=== PATIENT | male | born 1955 | race Hispanic/Latino ===

== ENCOUNTER 2022-11-26 19:42 | Inpatient (IN) | payer BC, MEDICARE ==
[2022-11-26 20:30] LABS: #Basophils 0.1 thou/uL (0.0-0.2); #Eosinphils 0.3 thou/uL (0.0-0.7); #Monocytes 0.7 thou/uL (0.11-0.59); #Neutrophils 5.4 thou/uL (1.40-6.50); %Basophils 0.7 % (0.0-1.0); %Eosinophils 3.5 % (0.0-10.0); %Lymphocytes 22.7 % (21.0-51.0); %Monocytes 7.8 % (0.0-10.0); %Neutrophils 65.1 % (42.0-75.0); Hematocrit 42.2 % (42.0-52.0); Hemoglobin 13.7 g/dL (14.0-18.0); Mean Corpuscular HGB CONC 32.5 g/dL (32.0-36.0); Mean Corpuscular Hemoglobin 29.9 pg (27.0-31.0); Mean Corpuscular Volume 92.1 fl (78.0-98.0); Mean Platelet Volume 11.7 fL (7.4-10.4); Platelet Count 215 10x3/uL (130-400); RBC Distribution Width 12.2 % (11.5-14.5); Red Blood Cell (RBC) Count 4.58 mill/uL (4.70-6.10); White Blood Cell (WBC) Count 8.4 10x3/uL (4.8-10.8)
[2022-11-26 20:56] LABS: ALT (SGPT) 22 U/L (8-55); AST (SGOT) 20 U/L (5-34); Albumin 3.9 g/dL (3.4-4.8); Alkaline Phosphatase 85 U/L (40-110); Anion Gap 13 mmol/L (10-20); BUN (Urea Nitrogen) 51 mg/dL (8.4-25.7); Bilirubin, Total 0.2 mg/dL (0.2-1.2); Calc. Creatinine Clearance 0 mL/min (70-130); Calcium 10.1 mg/dL (7.8-10.44); Carbon Dioxide 20 mmol/L (23-31); Chloride 111 mmol/L (98-107); Estimated GFR 37; Globulin 3.6 g/dL (2.4-3.5); Glucose 197 mg/dL (80-115); Protein, Total 7.5 g/dL (5.8-8.1); Sodium 137 mmol/L (136-145)
[2022-11-26 21:01] LABS: Digoxin 3.48 ng/mL (0.8-2.0)
[2022-11-26 21:02] LABS: Potassium 6.8 mmol/L (3.5-5.1)
[2022-11-26] MEDS ORDERED: CALCIUM GLUC 1 GM/NS 50 ML BAG ONE (21:20)
[2022-11-26] MEDS ORDERED: Insulin Regular 300 UNITS/3 ML VIAL ONE (21:37)
[2022-11-26] MEDS ORDERED: Furosemide 40 MG/4 ML VIAL ONE (21:37)
[2022-11-26] MEDS ORDERED: Dextrose 50% Abboject 50 ML SYRINGE ONE (21:38)
[2022-11-26] MEDS ORDERED: Albuterol 2.5 MG/0.5 ML NEB ONE (21:39)
[2022-11-26] MEDS ORDERED: LOKELMA 10 GM PACKET PO SCH (21:45)
[2022-11-26] MEDS ORDERED: Ondansetron ODT 4 MG TAB PO PRN (22:45)
[2022-11-26] MEDS ORDERED: Acetaminophen 325 MG TAB PO PRN (22:45)
[2022-11-26] MEDS ORDERED: Calcium Carbonate 500 MG ChewTAB PO PRN (22:45)
[2022-11-26] MEDS ORDERED: Senokot S 8.6-50 MG TAB PO PRN (22:45)
[2022-11-26 23:32] LABS: Anion Gap 6 mmol/L (10-20); BUN (Urea Nitrogen) 48 mg/dL (8.4-25.7); Calc. Creatinine Clearance 0 mL/min (70-130); Calcium 10.4 mg/dL (7.8-10.44); Carbon Dioxide 22 mmol/L (23-31); Chloride 114 mmol/L (98-107); Estimated GFR 42; Glucose 64 mg/dL (80-115); Potassium 5.3 mmol/L (3.5-5.1); Sodium 137 mmol/L (136-145)
[2022-11-26 23:51] LABS: HBSAB Concentration Less than 8.00 mIU/mL; HBSAg Index 0.24 S/CO (0-0.99); Hep B Surf AB Non-Reactive (NonReactive); Hep B Surf Ag Non-Reactive S/CO (NonReactive)
[2022-11-27 00:26] VITALS: BMI 26.0
[2022-11-27] MEDS ORDERED: Dextrose 50% Abboject 50 ML SYRINGE SLOW IVP PRN (01:24)
[2022-11-27] MEDS ORDERED: Glucagon 1 MG/ML KIT IM PRN (01:24)
[2022-11-27] MEDS ORDERED: HumaLOG 300 UNITS/3 ML VIAL SC PRN (01:24)
[2022-11-27] MEDS ORDERED: Dextrose 5% in Water 1,000 ML IV PRN (01:24)
[2022-11-27] MEDS ORDERED: Albuterol 200 PUFF (6.7GM INHALER) INH PRN (01:25)
[2022-11-27 04:46] LABS: #Basophils 0.1 thou/uL (0.0-0.2); #Eosinphils 0.3 thou/uL (0.0-0.7); #Monocytes 0.8 thou/uL (0.11-0.59); #Neutrophils 6.7 thou/uL (1.40-6.50); %Basophils 0.6 % (0.0-1.0); %Eosinophils 2.5 % (0.0-10.0); %Lymphocytes 20.6 % (21.0-51.0); %Monocytes 8.5 % (0.0-10.0); %Neutrophils 67.3 % (42.0-75.0); Hematocrit 41.1 % (42.0-52.0); Hemoglobin 13.6 g/dL (14.0-18.0); Mean Corpuscular HGB CONC 33.1 g/dL (32.0-36.0); Mean Corpuscular Hemoglobin 29.8 pg (27.0-31.0); Mean Corpuscular Volume 89.9 fl (78.0-98.0); Mean Platelet Volume 11.7 fL (7.4-10.4); Platelet Count 200 10x3/uL (130-400); RBC Distribution Width 12.1 % (11.5-14.5); Red Blood Cell (RBC) Count 4.57 mill/uL (4.70-6.10); White Blood Cell (WBC) Count 9.9 10x3/uL (4.8-10.8)
[2022-11-27 05:14] LABS: Anion Gap 15 mmol/L (10-20); BUN (Urea Nitrogen) 33 mg/dL (8.4-25.7); Calc. Creatinine Clearance 79 mL/min (70-130); Calcium 9.6 mg/dL (7.8-10.44); Carbon Dioxide 22 mmol/L (23-31); Chloride 105 mmol/L (98-107); Estimated GFR 68; Glucose 146 mg/dL (80-115); Magnesium 1.4 mg/dL (1.6-2.6); Potassium 4.8 mmol/L (3.5-5.1); Sodium 137 mmol/L (136-145)
[2022-11-27] MEDS: Mometasone 100 MCG/Formoterol 5 MCG 120 PUFF INHALER INH SCH (07:26)
[2022-11-27] MEDS ORDERED: Electrolyte Replacement Protocol 1 EACH FS SCH (07:45)
[2022-11-27] MEDS ORDERED: Magnesium Sulfate In Water 4 GM in Premix Bag 1 BAG IVPB SCH (07:45)
[2022-11-27] MEDS ORDERED: Electrolyte Replacement Protocol FS PRN (07:45)
[2022-11-27] MEDS: Aspirin 325 MG TAB PO SCH (08:42)
[2022-11-27] MEDS: Famotidine 20 MG TAB PO SCH ×2 (08:42→20:39)
[2022-11-27] MEDS: Furosemide 40 MG TAB PO SCH (08:42)
[2022-11-27] MEDS ORDERED: Spironolactone 25 MG TAB PO SCH (09:00)
[2022-11-27] MEDS ORDERED: Lisinopril 20 MG TAB PO SCH (09:00)
[2022-11-27] MEDS ORDERED: Potassium Chloride 20 MEQ TAB PO SCH (09:00)
[2022-11-27] MEDS ORDERED: Heparin 10,000 UNITS/ 10 ML VIAL ONE (10:07)
[2022-11-27 19:08] LABS: Anion Gap 17 mmol/L (10-20); BUN (Urea Nitrogen) 33 mg/dL (8.4-25.7); Calc. Creatinine Clearance 63 mL/min (70-130); Calcium 9.7 mg/dL (7.8-10.44); Carbon Dioxide 19 mmol/L (23-31); Chloride 105 mmol/L (98-107); Estimated GFR 52; Glucose 222 mg/dL (80-115); Potassium 5.3 mmol/L (3.5-5.1); Sodium 136 mmol/L (136-145)
[2022-11-27] MEDS: Atorvastatin Calcium 40 MG TAB PO SCH (20:32)
[2022-11-28 05:33] LABS: Anion Gap 14 mmol/L (10-20); BUN (Urea Nitrogen) 35 mg/dL (8.4-25.7); Calc. Creatinine Clearance 64 mL/min (70-130); Calcium 9.1 mg/dL (7.8-10.44); Carbon Dioxide 21 mmol/L (23-31); Chloride 106 mmol/L (98-107); Estimated GFR 53; Glucose 145 mg/dL (80-115); Magnesium 1.9 mg/dL (1.6-2.6); Sodium 136 mmol/L (136-145)
[2022-11-28] MEDS: Mometasone 100 MCG/Formoterol 5 MCG 120 PUFF INHALER INH SCH (07:12)
[2022-11-28] MEDS ORDERED: Magnesium 2 GM/50 ML(in water) 2 GM in Premix Bag 1 BAG IVPB SCH (08:00)
[2022-11-28] MEDS: Furosemide 40 MG TAB PO SCH (08:28)
[2022-11-28] MEDS: Famotidine 20 MG TAB PO SCH ×2 (08:28→19:40)
[2022-11-28] MEDS: Aspirin 325 MG TAB PO SCH (08:28)
[2022-11-28] MEDS: Atorvastatin Calcium 40 MG TAB PO SCH (19:40)
[2022-11-29 04:34] LABS: Anion Gap 13 mmol/L (10-20); BUN (Urea Nitrogen) 34 mg/dL (8.4-25.7); Calc. Creatinine Clearance 58 mL/min (70-130); Calcium 9.3 mg/dL (7.8-10.44); Carbon Dioxide 25 mmol/L (23-31); Chloride 103 mmol/L (98-107); Estimated GFR 48; Glucose 154 mg/dL (80-115); Potassium 4.7 mmol/L (3.5-5.1); Sodium 136 mmol/L (136-145)
[2022-11-29] MEDS: Mometasone 100 MCG/Formoterol 5 MCG 120 PUFF INHALER INH SCH (07:51)
[2022-11-29] MEDS ORDERED: Magnesium 2 GM/50 ML(in water) 2 GM in Premix Bag 1 BAG IVPB SCH (08:00)
[2022-11-29 08:12] LABS: Digoxin 1.52 ng/mL (0.8-2.0)
[2022-11-29] MEDS: Aspirin 325 MG TAB PO SCH (08:29)
[2022-11-29] MEDS: Furosemide 40 MG TAB PO SCH (08:29)
[2022-11-29] MEDS: Famotidine 20 MG TAB PO SCH (08:29)
[2022-11-29 12:24] VITALS: BP 127/96; TEMP 98.5
== END 2022-11-29 13:20 | disposition home or self-care (01) | DRG 683 ==
LOC: ERS 19:42 → IMCU/EMU 22:31 → 2NO 11-27 16:06
PROVIDERS: ADMIT Student in an Organized Health Care Education/Training Program; ATTEND Internal Medicine
PROC: 02HV33Z Insertion of Infusion Device into Superior Vena Cava, Percutaneous Approach (ICD-10-PCS; principal; 2022-11-26)
PROC: B5181ZA Fluoroscopy of Superior Vena Cava using Low Osmolar Contrast, Guidance (ICD-10-PCS; 2022-11-26)
PROC: 5A1D70Z Performance of Urinary Filtration, Intermittent, Less than 6 Hours Per Day (ICD-10-PCS; 2022-11-26)
DX: N17.9 Acute kidney failure, unspecified (principal); E87.20 Acidosis, unspecified; I13.0 Hypertensive heart and chronic kidney disease with heart failure and stage 1 through stage 4 chronic kidney disease, or unspecified chronic kidney disease; I48.20 Chronic atrial fibrillation, unspecified; I50.22 Chronic systolic (congestive) heart failure; T46.0X1A Poisoning by cardiac-stimulant glycosides and drugs of similar action, accidental (unintentional), initial encounter; N18.4 Chronic kidney disease, stage 4 (severe); T46.0X5A Adverse effect of cardiac-stimulant glycosides and drugs of similar action, initial encounter; E87.5 Hyperkalemia; F17.210 Nicotine dependence, cigarettes, uncomplicated; G47.33 Obstructive sleep apnea (adult) (pediatric); Z79.01 Long term (current) use of anticoagulants; Z79.84 Long term (current) use of oral hypoglycemic drugs; Z79.899 Other long term (current) drug therapy; R00.1 Bradycardia, unspecified
CPT/HCPCS: 36415; 36416; 36556; 71045; 76770; 80048; 80162; 83735; 85025; 86706; 87340; 90935; 93005; 93306; 94640; 94760; 96374; 96375; G0257; J0613; J1644; J1650; J1815; J1940; J3475; J7611; J7999

== ENCOUNTER 2023-01-17 17:00 | Outpatient (CLI) | payer BC | END 2023-01-17 17:01 | disposition home or self-care (01) | LOC: SLEEPLAB 17:00 | PROVIDERS: ATTEND Family Medicine | DX: G47.33 Obstructive sleep apnea (adult) (pediatric) (principal); G47.10 Hypersomnia, unspecified; R53.83 Other fatigue; R40.0 Somnolence; E66.9 Obesity, unspecified; R06.83 Snoring; G47.00 Insomnia, unspecified; I10 Essential (primary) hypertension; Z68.25 Body mass index [BMI] 25.0-25.9, adult | CPT/HCPCS: 95800 ==

== ENCOUNTER 2024-10-29 16:57 | Inpatient (IN) | payer BC, MEDICARE ==
[2024-10-29] MEDS ORDERED: Ketorolac Tromethamine 30 MG (1 mL) VIAL ONE (18:08)
[2024-10-29] MEDS ORDERED: Cefepime 2 GM VIAL ONE (18:08)
[2024-10-29 18:28] LABS: #Basophils 0.06 10x3/uL (0.0-0.2); #Eosinophils 0.18 10x3/uL (0.0-0.7); #Monocytes 0.83 10x3/uL (0.11-0.59); #Neutrophils 8.97 10x3/uL (1.40-6.50); %Basophils 0.5 % (0.0-1.0); %Eosinophils 1.6 % (0.0-10.0); %Lymphocytes 10.0 % (21.0-51.0); %Monocytes 7.4 % (0.0-10.0); %Neutrophils 79.9 % (42.0-75.0); Hematocrit 38.7 % (42.0-52.0); Hemoglobin 12.5 g/dL (14.0-18.0); Mean Corpuscular Hemoglobin 29.3 pg (27.0-31.0); Mean Corpuscular Volume 90.8 fL (78.0-98.0); Platelet Count 253 10x3/uL (130-400); Red Blood Cell (RBC) Count 4.26 mill/uL (4.70-6.10); White Blood Cell (WBC) Count 11.23 10x3/uL (4.8-10.8)
[2024-10-29] MEDS ORDERED: Lidocaine 2% 6 ML (Jelly) SYR ONE (18:28)
[2024-10-29] MEDS ORDERED: Vancomycin 1 GM/200 ML (FROZEN) BAG ONE (19:31)
[2024-10-29 19:47] LABS: ALT (SGPT) 11 U/L (Less than 45); AST (SGOT) 17 U/L (11-34); Albumin 3.0 g/dL (3.1-4.5); Alkaline Phosphatase 119 U/L (40-110); Anion Gap 16 mmol/L (10-20); BUN (Urea Nitrogen) 44 mg/dL (8.4-25.7); Bilirubin, Total 0.2 mg/dL (0.3-1.2); Calc. Creatinine Clearance 0 mL/min (70-130); Calcium 8.9 mg/dL (7.8-10.44); Carbon Dioxide 20 mmol/L (23-31); Chloride 109 mmol/L (98-107); Globulin 4.0 g/dL (2.4-3.5); Glucose 200 mg/dL (80-115); Potassium 5.3 mmol/L (3.5-5.1); Sodium 140 mmol/L (136-145)
[2024-10-29] MEDS ORDERED: Ondansetron PF 4 MG/2 ML Vial IVP PRN (22:52)
[2024-10-29] MEDS ORDERED: Calcium Carbonate 500 MG ChewTAB PO PRN (22:52)
[2024-10-29] MEDS ORDERED: Albuterol 200 PUFF (6.7GM INHALER) INH PRN (22:59)
[2024-10-30] MEDS: HYDROcodone/Acetaminophen 7.5/325 mg Tablet PO PRN (00:03)
[2024-10-30] MEDS ORDERED: Dextrose 50% Abboject 50 ML SYRINGE SLOW IVP PRN (00:17)
[2024-10-30] MEDS ORDERED: Glucagon 1 MG/ML KIT IM PRN (00:17)
[2024-10-30 00:44] VITALS: BMI 30.2
[2024-10-30] MEDS: HYDROcodone/Acetaminophen 7.5/325 mg Tablet PO SCH (04:17)
[2024-10-30 05:09] LABS: #Basophils 0.06 10x3/uL (0.0-0.2); #Eosinophils 0.34 10x3/uL (0.0-0.7); #Monocytes 1.16 10x3/uL (0.11-0.59); #Neutrophils 7.20 10x3/uL (1.40-6.50); %Basophils 0.6 % (0.0-1.0); %Eosinophils 3.2 % (0.0-10.0); %Lymphocytes 17.7 % (21.0-51.0); %Monocytes 10.8 % (0.0-10.0); %Neutrophils 67.2 % (42.0-75.0); Hematocrit 37.2 % (42.0-52.0); Hemoglobin 11.7 g/dL (14.0-18.0); Mean Corpuscular Hemoglobin 29.3 pg (27.0-31.0); Mean Corpuscular Volume 93.0 fL (78.0-98.0); Platelet Count 214 10x3/uL (130-400); Red Blood Cell (RBC) Count 4.00 mill/uL (4.70-6.10); White Blood Cell (WBC) Count 10.71 10x3/uL (4.8-10.8)
[2024-10-30 05:26] LABS: ALT (SGPT) 10 U/L (Less than 45); AST (SGOT) 19 U/L (11-34); Albumin 2.9 g/dL (3.1-4.5); Alkaline Phosphatase 108 U/L (40-110); Anion Gap 12 mmol/L (10-20); BUN (Urea Nitrogen) 37 mg/dL (8.4-25.7); Bilirubin, Total 0.2 mg/dL (0.3-1.2); Calc. Creatinine Clearance 75 mL/min (70-130); Calcium 8.9 mg/dL (7.8-10.44); Carbon Dioxide 22 mmol/L (23-31); Chloride 112 mmol/L (98-107); Globulin 3.8 g/dL (2.4-3.5); Glucose 144 mg/dL (80-115); Potassium 5.1 mmol/L (3.5-5.1); Sodium 141 mmol/L (136-145)
[2024-10-30] MEDS ORDERED: CEFAZOLIN 2 GM VIAL ONE (09:35)
[2024-10-30] MEDS ORDERED: PROPOFOL 20 ML ONE (09:36)
[2024-10-30] MEDS ORDERED: Ondansetron PF 4 MG/2 ML Vial ONE (09:38)
[2024-10-30] MEDS: Mometasone 100 MCG/Formoterol 5 MCG 120 PUFF INHALER INH SCH (10:37)
[2024-10-30] MEDS: Apixaban 5 MG TAB PO SCH (10:38)
[2024-10-30] MEDS: Digoxin 0.125 MG TAB PO SCH (10:39)
[2024-10-30] MEDS: Carvedilol 6.25 MG TAB PO SCH (10:39)
[2024-10-30] MEDS: Furosemide 40 MG TAB PO SCH (10:39)
[2024-10-30] MEDS: Aspirin Chewable 81 MG TAB PO SCH (10:39)
[2024-10-30] MEDS: Insulin Glargine 30 UNITS/0.3 ML VIAL SC SCH (10:39)
[2024-10-30] MEDS: Lisinopril 20 MG TAB PO SCH (10:40)
[2024-10-30] MEDS: Pantoprazole 40 MG DR.TAB PO SCH (11:12)
[2024-10-30] MEDS: Acetaminophen 325 MG TAB PO PRN (11:54)
[2024-10-30] MEDS: Vancomycin (BATCH) 2.5 GM in Premix 1 BAG IVPB SCH (14:18)
[2024-10-30] MEDS ORDERED: Vancomycin 1.5 GRAM/300 ML BAG IVPB SCH (21:00)
[2024-10-31 05:46] LABS: Vancomycin, Random 4.1 ug/mL (See Comment)
[2024-10-31] MEDS ORDERED: Vancomycin 1 GM in Premix 1 BAG IVPB SCH (10:30)
[2024-10-31] MEDS: Vancomycin 1 GM in Premix 1 BAG IVPB SCH (11:28)
[2024-11-01] MEDS ORDERED: Melatonin 3 MG TAB PO PRN (09:51)
[2024-11-02 06:16] LABS: Vancomycin, Random 18.0 ug/mL (See Comment)
[2024-11-02] MEDS ORDERED: Heparin 5,000 UNITS/ML VIAL ONE (08:47)
[2024-11-02] MEDS ORDERED: PROPOFOL 20 ML ONE ×2 (09:11→09:18)
[2024-11-02] MEDS ORDERED: Lidocaine 1% PF 5 ML VIAL ONE (09:33)
[2024-11-02] MEDS ORDERED: fentaNYL PF 100 MCG/2 ML SYRINGE ONE (10:37)
[2024-11-02] MEDS: Vancomycin HCl 1.25 GM in Sodium Chloride 0.9% 250 ML 250 ML IVPB SCH (12:46)
[2024-11-03] MEDS: Vancomycin HCl 1.25 GM in Sodium Chloride 0.9% 250 ML 250 ML IVPB SCH (08:36)
[2024-11-04 06:54] LABS: Vancomycin, Random 16.6 ug/mL (See Comment)
[2024-11-04 06:58] LABS: Calc. Creatinine Clearance 84.0 mL/min (70-130)
[2024-11-04 12:40] VITALS: BMI 30.2
[2024-11-04 16:28] VITALS: BP 113/59; TEMP 97.5
== END 2024-11-04 18:54 | disposition home or self-care (01) | DRG 253 ==
LOC: ERS 16:57 → SURG B 22:13
PROVIDERS: ADMIT Student in an Organized Health Care Education/Training Program; ATTEND Internal Medicine
PROC: 3E03329 Introduction of Other Anti-infective into Peripheral Vein, Percutaneous Approach (ICD-10-PCS; 2024-10-29)
PROC: 0QBL0ZZ Excision of Right Tarsal, Open Approach (ICD-10-PCS; 2024-10-30)
PROC: 047K3D1 Dilation of Right Femoral Artery with Intraluminal Device, using Drug-Coated Balloon, Percutaneous Approach (ICD-10-PCS; principal; 2024-11-02)
PROC: 3E033XZ Introduction of Vasopressor into Peripheral Vein, Percutaneous Approach (ICD-10-PCS; 2024-11-02)
DX: E11.51 Type 2 diabetes mellitus with diabetic peripheral angiopathy without gangrene (principal); E11.52 Type 2 diabetes mellitus with diabetic peripheral angiopathy with gangrene; I13.0 Hypertensive heart and chronic kidney disease with heart failure and stage 1 through stage 4 chronic kidney disease, or unspecified chronic kidney disease; I50.32 Chronic diastolic (congestive) heart failure; L97.412 Non-pressure chronic ulcer of right heel and midfoot with fat layer exposed; K92.2 Gastrointestinal hemorrhage, unspecified; B95.2 Enterococcus as the cause of diseases classified elsewhere; E11.621 Type 2 diabetes mellitus with foot ulcer; N18.30 Chronic kidney disease, stage 3 unspecified; E88.09 Other disorders of plasma-protein metabolism, not elsewhere classified; K21.9 Gastro-esophageal reflux disease without esophagitis; E87.5 Hyperkalemia; I48.91 Unspecified atrial fibrillation; F41.9 Anxiety disorder, unspecified; E78.00 Pure hypercholesterolemia, unspecified; F17.290 Nicotine dependence, other tobacco product, uncomplicated; Z88.8 Allergy status to other drugs, medicaments and biological substances
CPT/HCPCS: 36415; 36416; 80053; 80202; 82565; 83605; 85025; 86141; 86850; 86900; 86901; 87040; 87070; 87076; 87077; 87186; 87205; 93925; 96365; 96375; 97139; C1725; C1760; C1769; C1876; C1887; C2623; J0169; J0665; J0692; J1644; J1815; J1885; J2270; J2405; J2543; J2704; J3010; J3373; J7030; J7050